=== PATIENT | female | born 1980 | race Caucasian/White ===

== ENCOUNTER 2016-06-10 22:45 | Emergency (ER) | payer SELFPAY ==
[~2016-06-10] VITALS: Ht 170.2 cm; Wt 72.6 kg
--- NOTE | 2016-06-10 22:50 | NUR ---
To bed 8 a 36 yo female bibra per ems patient "used heroin today, passed out per boyfriend." However, upon arrival of ems to house, patient is alert, responsive to verbal stimuli. Upon arrival to er, patient is aaox2, no s/s of acute distress. Breathing even and unlabored. VSS. Reorientation done. Initiated comfort measures. Ongoing monitoring.
--- NOTE | 2016-06-11 02:49 | NUR ---
VSS. Patient discharged to home in stable condition. Written and verbal after care instructions given. Patient verbalizes understanding of instruction. Patient is ambulatory with steady gait, accompanied by significant other to drive home. Nor further complaints.
[2016-06-11 02:51] VITALS: BP 125/72
== END 2016-06-11 03:00 | disposition home or self-care (01) ==
LOC: ER 22:47
DX: F19.10 Other psychoactive substance abuse, uncomplicated (principal)
CPT/HCPCS: 82962-TC; A4606; Z7610

== ENCOUNTER 2016-12-01 14:25 | Emergency (ER) | payer SELFPAY ==
[~2016-12-01] VITALS: Ht 170.2 cm; Wt 77.1 kg
--- NOTE | 2016-12-01 14:25 | NUR ---
KATHLEEN Champion for ALOC, found on floor by hotel staff at [facility]. Narcan 2mg IM given in field. Pt arousable to deep stimuli. Pt admits to using heroin and meth yesterday. Pt placed on monitor. Awaiting MD evaluation.
[2016-12-01] MEDS ORDERED: IV NS 0.9% 1,000 ML BAG IV ONE (15:00)
--- NOTE | 2016-12-01 15:00 | NUR ---
NEW IV STARTED ON LEFT FOOT, 22 G.
--- NOTE | 2016-12-01 15:14 | NUR ---
UNABLE TO PERFORM STROKE NEURO ASSESSMENT. PATIENT IS ALTERED AND UNABLE TO FOLLOW COMMANDS.
[2016-12-01] MEDS ORDERED: DOXE25CA3 PO (15:17)
[2016-12-01] MEDS ORDERED: BUPR-51 PO (15:17)
[2016-12-01] MEDS ORDERED: PROP20TA22 PO (15:17)
[2016-12-01] MEDS ORDERED: BUPR1FIL5 SL (15:17)
[2016-12-01] MEDS ORDERED: PRAZ1CAP17 PO (15:17)
[2016-12-01] MEDS ORDERED: BACL20TA PO (15:17)
[2016-12-01] MEDS ORDERED: VENL150C58 PO (15:17)
[2016-12-01 15:18] LABS: BASOPHILS # (AUTO) 0.2 /CMM (0.0-0.2); BASOPHILS % (AUTO) 2.2 % (0.0-2.0); EOSINOPHILS # (AUTO) 0.1 /CMM (0.0-0.7); EOSINOPHILS % (AUTO) 1.3 % (0.0-6.0); HEMATOCRIT 34 % (33-45); HEMOGLOBIN 11.6 g/dL (11.5-14.8); LYMPHOCYTES # (AUTO) 2.3 /CMM (0.8-4.8); LYMPHOCYTES % (AUTO) 20.5 % (20.0-44.0); MEAN CORPUSCULAR HEMOGLOBIN 29 PG (26.0-33.0); MEAN CORPUSCULAR HGB CONC 34 g/dl (31.0-36.0); MEAN CORPUSCULAR VOLUME 86 fL (82-100); MONOCYTES # (AUTO) 0.6 /CMM (0.1-1.30); PLATELET COUNT (AUTO) 334 /CMM (150-450); RDW COEFFICIENT OF VARIATION 12.8 (11.5-15.0); RED BLOOD CELL COUNT(AUTO) 3.98 MIL/uL (4.0-5.2); WHITE BLOOD COUNT (AUTO) 11.2 K/uL (4.3-11.0)
[2016-12-01 15:26] LABS: CALCIUM, SERUM 8.9 mg/dL (8.5-10.1); CARBON DIOXIDE 26 mmol/L (21-32); CHLORIDE 103 mmol/L (98-107); CREATININE 0.7 mg/dL (0.6-1.3); GLUCOSE 105 mg/dL (74-106); POTASSIUM 3.9 mmol/L (3.5-5.1); SODIUM SERUM 137 mmol/L (136-145); UREA NITROGEN, BLOOD 8 mg/dL (7-18)
[2016-12-01 15:32] LABS: ALANINE AMINOTRANSFERASE 38 U/L (12-78); ALBUMIN 3.3 g/dL (3.4-5.0); ALCOHOL, BLOOD < 3 mg/dL (0-0); ALKALINE PHOSPHATASE 83 U/L (46-116); ASPARTATE AMINOTRANSFERASE 55 U/L (15-37); BILIRUBIN,DIRECT 0.5 mg/dL (0.0-0.2); TOTAL PROTEIN, SERUM 6.9 g/dL (6.4-8.2)
[2016-12-01 15:33] LABS: ACETAMINOPHEN < 2 ug/ml (10-30); SALICYLATE 1.3 mg/dL (2.8-20.0)
--- NOTE | 2016-12-01 16:27 | NUR ---
patient more alert, but still very lethargic. vitals remain stable. will continue to monitor.
[2016-12-01 20:51] VITALS: BP 130/76
--- NOTE | 2016-12-01 20:53 | NUR ---
Assumed d/c care only at this time on behalf of primary nurse Oliver. MENDEZ X4. Denies any sx's at this time. Given sandwich and jiuce. Discharged to home in stable condition. Written and verbal after care instructions given. Patient verbalizes understanding of instruction. IV removed. Catheter intact and site benign. Pressure and 4x4 applied to site. No bleeding noted. Ambulatory with a steady gait
== END 2016-12-01 20:52 | disposition home or self-care (01) ==
LOC: ER 14:25
DX: T40.601A Poisoning by unspecified narcotics, accidental (unintentional), initial encounter (principal); R41.82 Altered mental status, unspecified; Y92.89 Other specified places as the place of occurrence of the external cause
CPT/HCPCS: 36415; 71010; 80048; 80076; 80329; 85025; 96360; 99285; A4606; G0480 ×2; J7030; Z7610